=== PATIENT | female | born 1980 | race Asian ===

== ENCOUNTER 2019-06-10 19:16 | Emergency (ER) | payer MEDICAID ==
[~2019-06-10] VITALS: Ht 160 cm; Wt 74.4 kg
[2019-06-10 21:15] VITALS: BP 124/68
== END 2019-06-10 21:15 | disposition home or self-care (01) ==
LOC: ED 19:16
DX: S62.316A Displaced fracture of base of fifth metacarpal bone, right hand, initial encounter for closed fracture (principal); V49.88XA Car occupant (driver) (passenger) injured in other specified transport accidents, initial encounter; Y93.I9 Activity, other involving external motion; Y92.413 State road as the place of occurrence of the external cause; Y99.8 Other external cause status
CPT/HCPCS: Q0092